=== PATIENT | female | born 1970 | race Caucasian/White ===

== ENCOUNTER 2016-06-08 23:21 | Emergency (ER) | payer MEDICARE | END 2016-06-09 00:06 | disposition home or self-care (01) | LOC: ER 23:21 | DX: K11.20 Sialoadenitis, unspecified (principal); F32.9 Major depressive disorder, single episode, unspecified; F17.210 Nicotine dependence, cigarettes, uncomplicated; Z98.890 Other specified postprocedural states; Z79.899 Other long term (current) drug therapy; Z88.1 Allergy status to other antibiotic agents; Z88.5 Allergy status to narcotic agent ==

== ENCOUNTER 2016-07-14 12:44 | Emergency (ER) | payer MEDICARE | END 2016-07-14 18:42 | disposition home or self-care (01) | LOC: ER 12:44 | DX: N83.202 Unspecified ovarian cyst, left side (principal); N39.0 Urinary tract infection, site not specified; F32.9 Major depressive disorder, single episode, unspecified; F17.210 Nicotine dependence, cigarettes, uncomplicated; Z79.899 Other long term (current) drug therapy; Z88.1 Allergy status to other antibiotic agents; Z88.5 Allergy status to narcotic agent | CPT/HCPCS: 36415; 80307; 96361; 96374; 96375; J1885; Q9963; Q9967 ==